=== PATIENT | female | born 1990 | race Caucasian/White ===

== ENCOUNTER 2018-01-06 14:57 | Day surgery (SDC) | payer OTHER ==
[2018-01-06 15:45] VITALS: BMI 27.3
== END 2018-01-06 16:00 ==
LOC: L&D/OP 14:57
PROVIDERS: ATTEND Family Medicine
DX: O30.003 Twin pregnancy, unspecified number of placenta and unspecified number of amniotic sacs, third trimester (principal); Z3A.33 33 weeks gestation of pregnancy
CPT/HCPCS: 59025; 99282

== ENCOUNTER 2018-01-10 18:48 | Day surgery (SDC) | payer OTHER ==
[2018-01-10 19:13] VITALS: BP 126/66; TEMP 98.7; BMI 27.8
--- NOTE | 2018-01-10 21:09 | PRG ---
DATE OF ENCOUNTER: 01/10/2018 NONSTRESS TEST PRIMARY OB: Dr. Verna Miller. HISTORY OF PRESENT ILLNESS: Patient is a 27-year-old G2, P1 female with a twin gestation with an int rauterine at 33 weeks and 6 days, who was sent to Labor and Delivery for a routine NST for testing. After reviewing the strip, baby A is noted to have a baseline in the 130s with mo derate long-term variability, positive accelerations, no decelerations. Baby B has a baseline in the 140s with moderate long-term variability, positive accelerations, and no decelerations. The tocomet er shows no appreciable uterine contractions. Patient has no questions or concerns. PHYSICAL EXAMINATION: VITAL SIGNS: Blood pressure is 126/66, heart rate is 76, respiratory rate 18, satting 97% on room ai r, temperature 98.4. GENERAL: She appears to be in no acute distress. ASSESSMENT AND PLAN: Patient is a 27-year-old female with an intrauterine , twin gestations , 33 weeks and 6 days with a reactive nonstress test for both baby A and baby B. Mother has been dis charged to home with instructions to follow up with her primary OB, Dr. Verna Miller as scheduled.
== END 2018-01-10 19:45 | disposition home or self-care (01) ==
LOC: L&D/OP 18:48
PROVIDERS: ATTEND Family Medicine
DX: Z36.89 Encounter for other specified antenatal screening (principal); O30.003 Twin pregnancy, unspecified number of placenta and unspecified number of amniotic sacs, third trimester; Z3A.33 33 weeks gestation of pregnancy; Z79.899 Other long term (current) drug therapy

== ENCOUNTER 2018-01-17 19:00 | Day surgery (SDC) | payer OTHER ==
[2018-01-17 19:40] VITALS: BP 126/77; TEMP 98.6; BMI 27.8
== END 2018-01-17 19:48 | disposition home or self-care (01) ==
LOC: L&D/OP 19:00
PROVIDERS: ATTEND Family Medicine
DX: Z36.9 Encounter for antenatal screening, unspecified (principal)
CPT/HCPCS: 59025; 99281

== ENCOUNTER 2018-01-19 10:22 | Day surgery (SDC) | payer OTHER ==
[2018-01-19] MEDS ORDERED: Betamet Acet/Betamet Na Ph 30 MG/5 ML VIAL ONE (10:51)
[2018-01-19 10:58] VITALS: BMI 28.4
[2018-01-19 11:06] VITALS: BP 134/83; TEMP 99
== END 2018-01-19 11:15 | disposition home health service (06) ==
LOC: L&D/OP 10:22
PROVIDERS: ATTEND Family Medicine
DX: Z36.89 Encounter for other specified antenatal screening (principal)
CPT/HCPCS: 59025; 87081; 96372; 99282; J0702

== ENCOUNTER 2018-01-20 12:27 | Inpatient (IN) | payer OTHER ==
[2018-01-20 13:29] VITALS: BMI 28.4
[2018-01-20] MEDS ORDERED: Promethazine HCl 25 MG/ML VIAL IM PRN (13:50)
[2018-01-20] MEDS ORDERED: Ondansetron HCl/PF 4 MG/2 ML Vial IVP PRN (13:50)
[2018-01-20] MEDS ORDERED: Butorphanol Tartrate 1 MG/ML VIAL SLOW IVP PRN (13:50)
[2018-01-20] MEDS ORDERED: Zolpidem Tartrate 5 MG TAB PO PRN (13:50)
[2018-01-20] MEDS ORDERED: Lactated Ringer's 1,000 ML IV SCH (13:50)
[2018-01-20] MEDS ORDERED: Betamet Acet/Betamet Na Ph 30 MG/5 ML VIAL IM SCH (13:50)
[2018-01-20] MEDS ORDERED: CEFAZOLIN/Water 2 GM/20 ML SYRINGE SLOW IVP SCH (14:30)
[2018-01-20] MEDS ORDERED: Bicitra 30 ML UDCUP PO SCH (14:30)
--- NOTE | 2018-01-20 19:38 | HP ---
DATE OF ADMISSION: 01/20/2018 ADMITTING DIAGNOSES: 1. 35-week 2-day intrauterine with diamniotic monochorionic twins. 2. Discordant growth. 3. Baby B with intrauterine growth restriction at 1 percentile. HISTORY OF PRESENT ILLNESS: Rachna is a 27-year-old white female patient, well known to me through my clinic, G2, P1-0-0-1 with a diamniotic monochorionic twin at 35 weeks and 2 days, who i s admitted to Labor and Delivery for observation, steroids, and repeat section. The patient has been followed up in my clinic with onset of care at 8 weeks, where she was diagnosed wi th a twin . She has done well until recently with the . Has been receiving regula r ultrasounds through [facility]. Noted approximately 4 weeks prior that there was some discordant growth between baby A and B with B being smaller, but continuing to have sufficie nt growth during interval time. Noted last week that baby B was at the 5th percentile for growth, bu t continued to have, both A and B, with a normal biophysical profile and umbilical artery Dopplers. The patient has been receiving nonstress test every other day, which have remained reactive. Today, she presented to [facility] at a 1-week interval for repeat ultrasound and noted that baby B w as currently at 1 percentile for growth. I discussed this care with Dr. Rissa Sanchez, perinatologist with [facility], and agreed with my recommendation for admission, observation, and to finish h er second round of steroids. She had received two doses of IM steroids at 28 weeks, received a dose yesterday morning, and to repeat today with plans to monitor and repeat section approximatel y 24 hours later. PAST MEDICAL HISTORY: Significant for primary low-transverse section at 38 weeks with ruptu red membranes and breech. No other surgeries. No medical problems. MEDICATIONS: vitamins. ALLERGIES: She has no known drug allergies. SOCIAL HISTORY: She does not smoke or drink alcohol. She is and is a homemaker. FAMILY HISTORY: Insignificant. REVIEW OF SYSTEMS: As per HPI. PHYSICAL EXAMINATION: On initial physical exam, GENERAL: She is now alert, oriented, in no apparent distress. No contractions. No pain. VITAL SIGNS: Blood pressure 110/60, pulse 80, respiratory rate 18, afebrile. LUNGS: Clear to auscultation. CARDIOVASCULAR: Regular rate and rhythm without murmur. ABDOMEN: Soft with a gravid uterus, nontender. heart tones are reactive. Baby A and baby B b oth in the 130s and tracing well. No uterine irritability or contractions on the monitor. ASSESSMENT AND PLAN: 35-week 2-day intrauterine , diamniotic monochorionic with discordant growth and intrauterine growth restriction in baby B. The patient has received her second dose of st eroids. We will continue to observe this evening with plans for repeat section tomorrow alexander vernon. All questions were answered. All risks, benefits, and alternatives have been discussed with ean rubin patient.
[2018-01-21] MEDS: Lactated Ringer's 1,000 ML IV SCH ×2 (06:35→16:01)
[2018-01-21 07:14] LABS: Hemoglobin 11.4 g/dL (12.0-16.0); Mean Corpuscular HGB CONC 29.4 g/dL (32.0-36.0); Mean Corpuscular Volume 88.3 fl (81.0-99.0); Mean Platelet Volume 9.3 fL (7.4-10.4); Platelet Count 194 thou/uL (130-400); Red Blood Cell (RBC) Count 4.38 mill/uL (4.20-5.40); White Blood Cell (WBC) Count 11.7 thou/uL (4.8-10.8)
[2018-01-21 08:02] LABS: Hep B Surf Ag Non-Reactive S/CO (NonReactive)
[2018-01-21 08:03] LABS: Syphilis Antibody Nonreactive (Nonreactive); Syphilis Antibody Index 0.06 S/CO (<1.00 Non-Reactive)
[2018-01-21] MEDS ORDERED: CEFAZOLIN/Water 2 GM/20 ML SYRINGE ONE (09:53)
[2018-01-21] MEDS ORDERED: Oxytocin 10 UNITS/ML VIAL ONE (10:19)
[2018-01-21] MEDS ORDERED: Bupivacaine 0.75% W/DEXTROSE 8.25% 2 ML AMP ONE (10:19)
[2018-01-21] MEDS ORDERED: Lidocaine 1% PF 5 ML VIAL ONE (10:19)
[2018-01-21] MEDS ORDERED: Morphine PF 1 MG/ML SYR ONE (10:19)
[2018-01-21] MEDS ORDERED: Fentanyl 100 MCG/2 ML VIAL ONE (10:19)
[2018-01-21] MEDS ORDERED: PHENYLEPHRINE-NS 100 MCG/ML 10 ML SYRINGE ONE (10:41)
[2018-01-21] MEDS ORDERED: Ketorolac Tromethamine 30 MG/ML VIAL ONE (11:15)
[2018-01-21] MEDS ORDERED: Promethazine HCl 25 MG/ML VIAL IM PRN (11:16)
[2018-01-21] MEDS ORDERED: Promethazine HCl 25 MG SUPP PR PRN (11:16)
[2018-01-21] MEDS ORDERED: Meperidine HCl/PF 25 MG/ML VIAL SLOW IVP PRN (11:16)
[2018-01-21] MEDS ORDERED: diphenhydrAMINE 50 MG/ML VIAL IVP PRN (11:16)
[2018-01-21] MEDS ORDERED: HYDROmorphone 2 MG/ML VIAL SLOW IVP PRN (11:16)
[2018-01-21] MEDS ORDERED: Ondansetron HCl/PF 4 MG/2 ML Vial IVP PRN ×3 (11:16→15:06)
[2018-01-21] MEDS ORDERED: Eucerin (Mineral Oil/Petrolatum,White) 30 gm Jar TOP PRN (11:16)
[2018-01-21] MEDS ORDERED: Naloxone HCl 0.4 mg/ml Vial IVP PRN ×2 (11:16)
[2018-01-21] MEDS ORDERED: Naloxone HCl 0.4 mg/ml Vial IV PRN (11:16)
[2018-01-21] MEDS ORDERED: Acetaminophen 1,000 MG in Premix Bag 1 BAG IVPB PRN (11:18)
[2018-01-21] MEDS ORDERED: Ketorolac Tromethamine 30 MG/ML VIAL IVP SCH (11:30)
[2018-01-21] MEDS ORDERED: Communication Order-Pharmacy FS SCH (11:30)
[2018-01-21] MEDS ORDERED: NS / Oxytocin 40 units/1000ml 1,000 ML ONE (11:49)
[2018-01-21] MEDS ORDERED: LACTATED RINGERS IV SCH (12:00)
[2018-01-21] MEDS ORDERED: SODIUM CHLORIDE IV SCH (12:00)
[2018-01-21] MEDS ORDERED: OXYTOCIN IV SCH (12:00)
[2018-01-21] MEDS ORDERED: NS / Oxytocin 40 units/1000ml 1,000 ML IV SCH ×2 (12:45→13:00)
--- NOTE | 2018-01-21 12:58 | OP ---
DATE OF SURGERY: 01/21/2018 PREOPERATIVE DIAGNOSES: A 35-week 3-day intrauterine with diamniotic monochorionic twins w ith intrauterine growth restriction. POSTOPERATIVE DIAGNOSES: A 35-week 3-day intrauterine with diamniotic monochorionic twins with intrauterine growth restriction, status post delivery. PROCEDURE: Repeat low transverse section. SURGEON: Verna Miller M.D. LINE APPLIANCE ASSEMBLER: Dov Miller M.D. ANESTHESIA: Spinal anesthetic. COMPLICATIONS: None. PROCEDURE IN DETAIL: After adequate spinal anesthetic, the patient was placed in supine position. A Medina catheter was placed in the bladder. The abdomen was prepped and draped in the usual sterile t echnique. It was noted that a wedge had been placed under her right flank. A Pfannenstiel incision was made through the old scar. Subcutaneous tissue opened with sharp dissection, fascia with sharp d issection. Peritoneum opened with sharp and blunt dissection. It was noted that the abdomen was jason led with a gravid uterus and Bob O retractor was placed and a low transverse incision was made on the uterus. Noted with twin A, membranes were ruptured and clear fluid was encountered and a viable male was delivered from vertex presentation without difficulty. Infant breathed and cried spo ntaneously. The cord was clamped and cut, and the was handed to care of the neonatology team. Noted with baby B, a second amniotic sac and membranes were ruptured, clear fluid was encountered a nd a viable male was delivered from footling breech presentation without difficulty. b reathed and cried spontaneously. Noted the weight was 3 pounds 6 ounces. The cord was clamped and c ut and was handed to care of the neonatology team. The placenta was delivered manually and se nt to pathology with different clamps placed on each cord for differentiation. The hysterotomy edges were grasped with ring forceps and the uterus was wiped clean with a wet lap. An additional ring fo rcep was used to dilate the cervix and this ring forcep was taken external to the sterile field. The uterus was then closed in continuous fashion using 0 Monocryl. Hemostasis was adequate. A second l ricardo of imbrication was then placed again with good hemostasis. There was no bleeding from peritonea l edges and the Bob O retractor was removed. The peritoneum was then closed in continuous fashion using 2-0 chromic and few bleeders on the subcutaneous tissue were cauterized after irrigation. The skin was then closed using jazmine. The patient tolerated the procedure well, in recovery room in g ood condition. Noted baby A is a twin male, weight 5 pounds 12 ounces. Baby B is a twin male, weigh t 3 pounds 6 ounces. Both transferred to the Intensive Care Unit at this time in good condi tion. ESTIMATED BLOOD LOSS: 600 mL.
[2018-01-21] MEDS ORDERED: Acetaminophen/Codeine 30-300mg Tablet PO PRN (15:06)
[2018-01-21] MEDS ORDERED: Lanolin Ointment 7 GM TUBE TOP PRN (15:06)
[2018-01-21] MEDS ORDERED: Lactated Ringer's 1,000 ML IV SCH (15:06)
[2018-01-21] MEDS ORDERED: Acetaminophen 325 MG TAB PO PRN (15:06)
[2018-01-21] MEDS ORDERED: Bisacodyl 10 MG SUPP PR PRN (15:06)
[2018-01-21] MEDS ORDERED: diphenhydrAMINE 25 MG CAP PO PRN (15:06)
[2018-01-21] MEDS: Ketorolac Tromethamine 30 MG/ML VIAL IVP SCH ×2 (16:00→18:14)
[2018-01-21] MEDS: Ferrous Sulfate 325 MG TAB PO SCH (22:24)
[2018-01-21] MEDS: Docusate Calcium (SURFAK) 240 MG CAP PO SCH (22:24)
[2018-01-22] MEDS: Ketorolac Tromethamine 30 MG/ML VIAL IVP SCH (00:58)
[2018-01-22] MEDS: Ibuprofen 800 MG TAB PO SCH ×3 (04:16→21:00)
[2018-01-22 05:45] LABS: Hemoglobin 10.5 g/dL (12.0-16.0); Mean Corpuscular HGB CONC 33.8 g/dL (32.0-36.0); Mean Corpuscular Hemoglobin 30.2 pg (27.0-31.0); Mean Corpuscular Volume 89.5 fl (81.0-99.0); Mean Platelet Volume 9.2 fL (7.4-10.4); Platelet Count 165 thou/uL (130-400); Red Blood Cell (RBC) Count 3.48 mill/uL (4.20-5.40); White Blood Cell (WBC) Count 14.3 thou/uL (4.8-10.8)
[2018-01-22] MEDS: Prenatal Vitamin 1 TAB PO SCH (09:32)
[2018-01-22] MEDS: Ferrous Sulfate 325 MG TAB PO SCH ×2 (09:32→21:01)
[2018-01-22] MEDS: Docusate Calcium (SURFAK) 240 MG CAP PO SCH ×2 (09:32→21:00)
[2018-01-22] MEDS: HYDROcodone/Acetaminophen 5/325 mg Tablet PO PRN (17:47)
[2018-01-23] MEDS: HYDROcodone/Acetaminophen 5/325 mg Tablet PO PRN (00:01)
[2018-01-23] MEDS: Ibuprofen 800 MG TAB PO SCH ×2 (05:41→14:51)
[2018-01-23] MEDS: Prenatal Vitamin 1 TAB PO SCH (09:03)
[2018-01-23] MEDS: Docusate Calcium (SURFAK) 240 MG CAP PO SCH (09:03)
[2018-01-23] MEDS: Ferrous Sulfate 325 MG TAB PO SCH (09:04)
[2018-01-23 13:06] VITALS: BP 130/55; TEMP 98.3
[2018-01-23] MEDS ORDERED: Ibuprofen 800 MG TAB PO SCH (14:00)
== END 2018-01-23 18:32 | disposition home or self-care (01) | DRG 765 ==
LOC: L&D 12:27 → 3SW 01-21 14:11
PROVIDERS: ADMIT Family Medicine; ATTEND Family Medicine
PROC: 10D00Z1 Extraction of Products of Conception, Low, Open Approach (ICD-10-PCS; principal; 2018-01-21)
DX: O60.14X1 Preterm labor third trimester with preterm delivery third trimester, fetus 1 (principal); O36.5932 Maternal care for other known or suspected poor fetal growth, third trimester, fetus 2; O30.043 Twin pregnancy, dichorionic/diamniotic, third trimester; O60.14X2 Preterm labor third trimester with preterm delivery third trimester, fetus 2; Z37.2 Twins, both liveborn; Z3A.35 35 weeks gestation of pregnancy; O30.033 Twin pregnancy, monochorionic/diamniotic, third trimester
CPT/HCPCS: 36415; 51702; 85027; 86780; 86850; 86900; 86901; 87340; 88307; C1758; C1769; J1885; J2001; J2274; J2405; J2550; J2590; J3010; J3490